=== PATIENT | female | born 1990 | race Caucasian/White ===

== ENCOUNTER 2022-04-07 16:35 | Emergency (ER) | payer MEDICAID, SELFPAY ==
[2022-04-07 16:41] VITALS: BP 152/95; PULSE 119; RESP 14; TEMP 36.8; O2SAT 99
[2022-04-07 17:58] LABS: Add Urine Microscopic? NO; Charge for UA Resulting for Rev
[2022-04-07 18:00] LABS: Bilirubin Urine Neg (Negative); Blood Urine Neg (Negative); Glucose Urine UA Norm (Normal); Ketones Urine Negative (Negative); Leukocyte Esterase Urine Negative (Negative); Nitrate Urine Negative (Negative); Protein Urine Neg (Negative); Urine Appearance Clear (CLEAR); Urine Color Straw (Yellow); Urobilinogen Urine Norm (Negative); pH Urine 5 (5-7)
--- NOTE | 2022-04-07 18:02 | W.ED.FEMALGU ---
HPI - Female Genitourinary General: Chief complaint: Urogenital-Female Stated complaint: urinary pain Time Seen by Provider: 04/07/22 17:41 Source: patient and family Mode of arrival: ambulatory Limitations: no limitations History of Present Illness: Patient is here in the emergency department because she is concerned about some pelvic symptoms and dysuria and burning that she is experienced over the past week. She states she was initially diagnosed as having a possible bladder or lower urinary tract infection given 3 days of antibiotics and seemingly was better however subsequently she was told she did not have a urinary tract infection by her regular clinic. She continues to have intermittent burning and fullness sensation in her lower pelvis. She denies vaginal discharge or vaginal bleeding. Is had no history of STDs and is monogamous. Has had 3 vaginal deliveries the most recent of which was 2 years ago without complications. Was a question of whether she could have PID according to one of her clinic visits although she had no symptoms to suggest that and no history of risk and however and was placed on Flagyl for period of time. MD elicited complaint: dysuria Quality of pain: cramping and dull Consistency: intermittent Associated symptoms: Deny abdominal pain, nausea or vaginal discharge Sexual activity: Yes Patient : No Review of Systems Const: Reports: body aches; Denies: fever(s) or chills GI: Denies: abdominal pain, nausea, vomiting or diarrhea : Denies: flank pain, difficulty voiding, dysuria, hematuria, genital pruritis, vaginal bleeding, vaginal discharge or metrorrhagia Musc: Denies: neck pain or back pain Skin/Breast: Denies: rash Neuro: Denies: numbness in extremities or weakness in extremities Endo: Denies: polyuria or polydipsia Physical Exam Narrative: EXAM NARRATIVE: Patient makes good eye contact she appears to be comfortable and cooperative. Speech is goal-directed and fluent. Const: COMMON NORMALS: no acute distress, average body habitus, patient oriented x3 and alert GENERAL APPEARANCE: cooperative and comfortable HENMT: COMMON NORMALS: normocephalic and Normal nasal mucous membranes and turbinates present HEAD & SCALP: normocephalic NOSE: Normal nasal mucous membranes and turbinates present Eye: COMMON NORMALS: Equal, round and reactive pupils present and conjunctivae normal CONJUNCTIVA: Yes conjunctivae normal PUPIL: Yes Equal, round and reactive pupils present Neck/C-Spine: COMMON NORMALS: full ROM Resp: COMMON NORMALS: normal respiratory effort EFFORT & INSPECTION: Yes able to speak in complete sentences Cardio: COMMON NORMALS: Peripheral pulses 2+ throughout PERIPHERAL PULSES: Peripheral pulses 2+ throughout GI: COMMON NORMALS: Normal to inspection, nondistended, normoactive bowel sounds present, Soft to palpation, non-tender and no masses PALPATION: Yes Soft to palpation : COMMON NORMALS: Yes no CVA tenderness BLADDER/KIDNEY EXAM: Yes no CVA tenderness Back/Pelvis: COMMON NORMALS: no CVA tenderness, thoracic and lumbar spine normal to inspection, no thoracic nor lumbar tenderness and thoraco-lumbar ROM normal Extremity: COMMON NORMALS: normal to inspection and full ROM Neuro: COMMON NORMALS: patient oriented x3 and moves all extremities SENSORIUM/ORIENTATION: Yes alert SPEECH: speech normal GAIT: Yes Normal gait present Course Reevaluation(s): Reevaluation #1: Patient's a urinalysis and hCG are negative. We discussed the fact that I limited information at this point of determining what exactly is causing her discomfort. Certainly does not suggest renal colic, PID etc. at this time but again limited information available. I discussed possible pelvic ultrasound to give us more definitive information and she agreed to proceed. Time: 19:35 Vital Signs: Vital signs: Vital Signs Temperature 98.2 F 04/07/22 16:41 Pulse Rate 119 H 04/07/22 16:41 Respiratory Rate 14 04/07/22 16:41 Blood Pressure 152/95 04/07/22 16:41 Pulse Oximetry 99 04/07/22 16:41 Oxygen Delivery Me thod 04/07/22 16:41 MDM - Female Medical Decision Making This patient presented to emergency department because she had concerns about possible urinary tract infection. She has been having some lower pelvic pressure and what she thought was some dysuria symptoms. She was previously treated with 2 courses of antibiotics. Had some concerns about possible other causes of her symptoms and therefore presented to the emergency department. She had no history of STDs, pelvic surgery other than a tubal ligation, abnormal vaginal bleeding, vaginal discharge etc. She was monogamous and denies any history of dyspareunia exceptor. She had a reassuring clinical examination with no evidence of surgical abdomen etc. Urinalysis was reassuring as well as hCG making urinary tract infection, ectopic very unlikely. She had some also can express some concerns about missing her Pap smear and concerned about possible cervical cancer as she was told she had some abnormal cells before her last delivery. I expect explained to both patient and spouse that we did not have the means to to do Pap smears in the emergency department and this need to be done by her health facilities surveyor and/or primary care doctor. We did obtain a pelvic ultrasound to further delineate any potential pathology which was reassuring and that there was no evidence of free fluid, ovarian cysts etc. She did have a uterine fibroid which may or may not be a contributing factor to her symptoms. At this point she is stable and is capable of continuing her work-up as an outpatient and she voiced understanding of her evaluation has limitations and was appreciative of care. She was advised to use ibuprofen and/or Aleve to help with any cramping or other symptoms that could be attributable to her uterine fibroid. Lab Data I reviewed the patient's lab results. Radiology Impressions Pelvic/Transvag US 04/07/22 19:34 IMPRESSION: 1. No acute findings. 2. 2.5 cm fundal uterine fibroid. Laboratory Results HCG, Qual Negative (Negative) 04/07/22 17:50 Urine Color Straw (Yellow) 04/07/22 17:50 Urine Appearance Clear (CLEAR) 04/07/22 17:50 Urine pH 5 (5-7) 04/07/22 17:50 Ur Specific [place] 1.020 (1.005-1.030) 04/07/22 17:50 Urine Protein Neg (Negative) 04/07/22 17:50 Urine Glucose (UA) Norm (Normal) 04/07/22 17:50 Urine Ketones Negative (Negative) 04/07/22 17:50 Urine Blood Neg (Negative) 04/07/22 17:50 Urine Nitrate Negative (Negative) 04/07/22 17:50 Urine Bilirubin Neg (Negative) 04/07/22 17:50 Urine Urobilinogen Norm mg/dL (Negative) 04/07/22 17:50 Ur Leukocyte Esterase Negative (Negative) 04/07/22 17:50 Discharge Plan Discharge Patient Disposition: Home Clinical Impression: Fibroid, uterine Condition: Stable Discharge Orders: Discharge ED (Routine); Ordered 04/07/22 Ordered By: Tomas Vidal Discharge Diet: Usual diet Discharge Activity: Resume usual activity Patient Instructions: Opioid Safety, Pain Management Activity Restrictions/Additional Instructions: As we discussed you have evidence of uterine fibroid that may or may not be contributing responsible for some of your symptoms. You do not have any evidence of serious conditions such as pelvic mass, ovarian cyst, ectopic etc. If you have some cramping or other discomfort we recommend taking either ibuprofen or Aleve in the usual [id number] doses 1 with meals twice daily for the for 5 days to see if that abates her symptoms. If you have increasing pain, vaginal bleeding, vaginal discharge fevers etc. return to this or the nearest emergency department. We also recommend you get in with your primary care doctor or health facilities surveyor to get your annual Pap smears completed. Coding Level of Care Code ED Web Solutions Architect for Zuleika Loza
[2022-04-07 19:16] LABS: HCG Qualitative Urine. Negative (Negative)
--- NOTE | 2022-04-07 19:34 | USR_ITS ---
PROCEDURE INFORMATION: Exam: US Pelvis, Transvaginal Exam date and time: 04/07/2022 7:45 PM Age: 31 years old Clinical indication: Pelvic pain; Additional info: Pelvic pain-non TECHNIQUE: Imaging protocol: Real-time transvaginal pelvic ultrasound with image documentation. Transvaginal imaging was used for better evaluation of the endometrium, adnexa, and/or cervix. COMPARISON: No relevant prior studies available. FINDINGS: Uterus: 9.6 x 5.0 x 6.6 cm. Endometrial thickness 10 mm. 2.5 cm fundal intramural fibroid. Cervix: Small nabothian cysts. Right ovary/adnexa: 2.7 x 1.8 x 2.2 cm with multiple follicles and normal blood flow. Left ovary/adnexa: 2.5 x 1.6 x 1.7 cm with multiple follicles and normal blood flow. Intraperitoneal space: No free fluid. US/US pelv w/transvag [id number] IMPRESSION: 1. No acute findings. 2. 2.5 cm fundal uterine fibroid.
== END 2022-04-07 21:12 | disposition home or self-care (01) ==
PROVIDERS: Emergency Provider Emergency Medicine
DX: D25.9 Leiomyoma of uterus, unspecified (principal)
CPT/HCPCS: 76830; 76856; 81003; 81025; 99284

== ENCOUNTER 2023-02-20 10:45 | Emergency (ER) | payer MEDICAID, SELFPAY ==
[2023-02-20 10:51] VITALS: BMI 25.8
[2023-02-20 10:53] VITALS: BP 144/98; PULSE 75; RESP 16; TEMP 36.6; O2SAT 100
--- NOTE | 2023-02-20 10:55 | ECG_ITS ---
[facility] Test Date: 2023-02-20 Pat Name: Karmen Musa Department: Room: Gender: Female Polysomnography Technician: : 1990 Requested By: Laureen Mujica Order Number: [id number] Sharon MD: Toño Roblero M.D. Measurements Intervals [place] Rate: 74 P: 49 UT: 167 QRS: 65 QRSD: 92 T: 43 QT: 378 QTc: 422 Interpretive Statements SINUS RHYTHM No previous ECG available for comparison Electronically Signed On 02-20-2023 13:57:01 TRAVEL INSURANCE AGENT by Toño Roblero M.D. [email or web address]
--- NOTE | 2023-02-20 10:55 | XRR_ITS ---
PROCEDURE INFORMATION: Exam: XR Chest Exam date and time: 02/20/2023 11:12 AM Age: 32 years old Clinical indication: Pain; Angina pectoris; Additional info: Cp TECHNIQUE: Imaging protocol: Radiologic exam of the chest. Views: 1 view. COMPARISON: No relevant prior studies available. FINDINGS: Lungs: Unremarkable. No consolidation. Pleural spaces: Unremarkable. No pleural effusion. No pneumothorax. Heart/Mediastinum: Unremarkable. No cardiomegaly. Bones/joints: Unremarkable. XR/XR chest 1V portable [id number] IMPRESSION: No acute findings.
--- NOTE | 2023-02-20 11:13 | ED_ITS ---
HPI - Chest Pain 2 General: Chief Complaint: Chest Pain Stated Complaint: chest pains Time Seen by Provider: 02/20/23 11:02 Source: patient Mode of arrival: ambulatory Limitations: no limitations History of Present Illness: 32-year-old female states that she been having chest pain over the last 2 days. States that sharp pain in her left lateral chest she had some mild dyspnea denies any worsening pain with breathing. 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 States that she has follow-up next week with a oral and maxillofacial surgery in [place] no recent trips she is not on control no recent surgeries no history of blood clots she rates her pain currently 2 out of 10 denies any worsening improving factors Associated symptoms: Deny abdominal pain, dyspnea, fever(s), nausea or vomiting Review of Systems 2 Const: Denies: fever(s), chills, body aches or change in appetite ENMT: Denies: throat pain or dental pain Card: Reports: chest pain Resp: Denies: dyspnea GI: Denies: abdominal pain, nausea, vomiting or diarrhea Musc: Denies: neck pain or back pain Skin/Breast: Denies: rash Neuro: Denies: headache(s) Physical Exam 2 Const: COMMON NORMALS: no acute distress, patient oriented x3 and healthy appearing HENMT: COMMON NORMALS: normocephalic and atraumatic HEAD & SCALP: n ormocephalic and atraumatic Eye: COMMON NORMALS: conjunctivae normal CONJUNCTIVA: Yes conjunctivae normal Neck/C-Spine: COMMON NORMALS: full ROM and supple Chest: COMMONS NORMALS: normal inspection of the chest and normal palpation of entire chest wall Resp: COMMON NORMALS: normal respiratory effort, No retractions, No use of accessory muscles and clear to auscultation bilaterally AUSCULTATION: clear to auscultation bilaterally Cardio: COMMON NORMALS: regular rate, regular rhythm and No murmurs present (Cardio) RATE: regular rate RHYTHM: regular rhythm GI: COMMON NORMALS: Normal to inspection, nondistended, normoactive bowel sounds present, Soft to palpation, non-tender and no masses PALPATION: Yes Soft to palpation Extremity: COMMON NORMALS: normal to inspection and full ROM Neuro: COMMON NORMALS: patient oriented x3, moves all extremities and no focal motor deficits Psych: COMMON NORMALS: mental status grossly normal, Normal thought process present and cooperative THOUGHT PROCESS: Normal thought process present Skin: COMMON NORMALS: no rashes or lesions noted and no wounds GENERAL SKIN EXAM: no rashes or lesions noted Course 2 Vital Signs: Vital signs: Vital Signs Temperature 97.9 F 02/20/23 10:53 Pulse Rate 75 02/20/23 10:53 Respiratory Rate 16 02/20/23 10:53 Blood Pressure 144/98 02/20/23 10:53 Pulse Oximetry 100 02/20/23 10:53 Oxygen Delivery Me thod Room Air 02/20/23 10:53 MDM - Chest Pain Medical Decision Making Patient presents here with chest pains atypical in nature troponin here is negative she has no risk factors for PE she has follow-up with oral and maxillofacial surgery next week she is follow-up as scheduled return if worsening. Medical Records I reviewed the patient's medical records. Lab Data I reviewed the patient's lab results. 02/20/23 11:07 02/20/23 11:07 Radiology Impressions Chest X-Ray 02/20/23 10:55 IMPRESSION: No acute findings. Laboratory Results WBC 4.75 10^3/uL (3.29-11.43) 02/20/23 11:07 RBC 4.74 10^6/uL (3.85-5.65) 02/20/23 11:07 Hgb 12.40 g/dL (11.27-16.99) 02/20/23 11:07 Hct 40.2 % (36-47) 02/20/23 11:07 MCV 84.8 fl (85-98) L 02/20/23 11:07 MCH 26.2 pg (27-33) L 02/20/23 11:07 MCHC 30.8 g/dL (30-55) 02/20/23 11:07 RDW 16.3 % (12.1-15.1) H 02/20/23 11:07 Plt Count 277 10^3/cmm (157-399) 02/20/23 11:07 MPV 11.2 fL (7.4-10.4) H 02/20/23 11:07 Neut % (Auto) 67.0 % 02/20/23 11:07 Lymph % (Auto) 22.9 % 02/20/23 11:07 [place] % (Auto) 7.6 % 02/20/23 11:07 Eos % (Auto) 1.3 % 02/20/23 11:07 Baso % (Auto) 0.8 % 02/20/23 11:07 Neut # (Auto) 3.18 10^3/uL (1.8-7.7) 02/20/23 11:07 Lymph # (Auto) 1.1 10^3/uL (0.8-4.8) 02/20/23 11:07 [place] # (Auto) 0.4 10^3/uL (0.2-0.9) 02/20/23 11:07 Eos # (Auto) 0.1 10^3/uL (0.0-0.8) 02/20/23 11:07 Baso # (Auto) 0.0 10^3/uL (0.0-0.1) 02/20/23 11:07 Nucleated RBC % (auto) 0 % 02/20/23 11:07 Nucleated RBCs # 0.0 /100WBC 02/20/23 11:07 Sodium 139 mmol/L (136-145) 02/20/23 11:07 Potassium 4.2 mmol/L (3.5-5.1) 02/20/23 11:07 Chloride 106 mmol/L (98-107) 02/20/23 11:07 Carbon Dioxide 24 mmol/L (22-29) 02/20/23 11:07 Anion Gap 13.2 (5-19) 02/20/23 11:07 BUN 5 mg/dL (6-20) L 02/20/23 11:07 Creatinine 0.5 mg/dL (0.5-0.9) 02/20/23 11:07 GFR Calculation 141.2 mL/min (90-130) H 02/20/23 11:07 Glucose 100 mg/dL (65-115) 02/20/23 11:07 Calculated Osmolality 285 mOsm/kg (285-295) 02/20/23 11:07 Calcium 9.7 mg/dL (8.5-10.5) 02/20/23 11:07 Total Bilirubin 0.2 mg/dL (0.15-1.2) 02/20/23 11:07 AST 13 U/L (0-32) 02/20/23 11:07 ALT 7 U/L (0-33) 02/20/23 11:07 Alkaline Phosphatase 105 U/L (35-105) 02/20/23 11:07 Troponin T Baseline < 6 ng/L (0-10) 02/20/23 11:07 Total Protein 7.3 g/dL (6.6-8.7) 02/20/23 11:07 Albumin 4.8 g/dL (3.5-5.2) 02/20/23 11:07 Globulin 2.5 g/dL (1.3-4.6) 02/20/23 11:07 HCG, Qual Negative (Negative) 02/20/23 11:07 All radiology interpretation(s) finalized by discharge EKG Data EKG 1: I personally reviewed and interpreted this EKG as follows: EKG interpretation date: 02/20/23 EKG interpretation time: 10:53 Interpretation: nsr hr [address] or t wave abnormalities qrs 92 qtc 406 Discharge Plan Discharge Patient Disposition: Home Clinical Impression: Chest pain Qualifiers: Chest pain type: unspecified Qualified Code(s): R07.9 - Chest pain, unspecified Condition: Stable Prescriptions: No Action propranolol 20 mg tablet 20 mg PO TID PRN (Reason: Headache) Discharge Orders: Discharge ED (Routine); Ordered 02/20/23 Ordered By: Laureen Mujica Referrals: Estrella Eagle NP [Primary Care Provider] - Discharge Diet: Advance as tolerated Discharge Activity: Resume usual activity Patient Instructions: Chest Pain (ED) Coding Level of Care Code ED Manager Managing for Chg Dago
[2023-02-20 11:19] LABS: Basophils % 0.8 %; Eosinophils # 0.1 10^3/uL (0.0-0.8); Eosinophils % 1.3 %; Hematocrit 40.2 % (36-47); Lymphocytes # 1.1 10^3/uL (0.8-4.8); Lymphocytes % 22.9 %; Mean Corpuscular HGB Conc 30.8 g/dL (30-55); Mean Corpuscular Hemoglobin 26.2 pg (27-33); Mean Corpuscular Volume 84.8 fl (85-98); Mean Platelet Volume 11.2 fL (7.4-10.4); Monocytes # 0.4 10^3/uL (0.2-0.9); Monocytes % 7.6 %; Neutrophils # 3.18 10^3/uL (1.8-7.7); Nucleated Red Blood Cells % 0 %; Platelet Count 277 10^3/cmm (157-399); Red Blood Count 4.74 10^6/uL (3.85-5.65); Red Cell Distribution Width 16.3 % (12.1-15.1); White Blood Count 4.75 10^3/uL (3.29-11.43)
[2023-02-20 11:34] LABS: HCG, Serum Qual Negative (Negative)
[2023-02-20 11:38] LABS: Alanine Aminotransferase 7 U/L (0-33); Albumin Level 4.8 g/dL (3.5-5.2); Alkaline Phosphatase 105 U/L (35-105); Anion Gap 13.2 (5-19); Aspartate Amino Transferase 13 U/L (0-32); Blood Urea Nitrogen 5 mg/dL (6-20); Calcium 9.7 mg/dL (8.5-10.5); Carbon Dioxide 24 mmol/L (22-29); Chloride 106 mmol/L (98-107); Globulin 2.5 g/dL (1.3-4.6); Glomerular Filtration Rate 141.2 mL/min (90-130); Glucose 100 mg/dL (65-115); Osmolality Calculated 285 mOsm/kg (285-295); Potassium 4.2 mmol/L (3.5-5.1); Sodium 139 mmol/L (136-145); Total Bilirubin 0.2 mg/dL (0.15-1.2); Total Protein 7.3 g/dL (6.6-8.7)
[2023-02-20 11:40] LABS: Troponin(5th) Baseline < 6 ng/L (0-10)
[2023-02-20 11:57] VITALS: BP 144/98; PULSE 78; RESP 15; O2SAT 100
== END 2023-02-20 11:58 | disposition home or self-care (01) ==
PROVIDERS: Emergency Provider Emergency Medicine; PCP Nurse Practitioner Family
DX: R07.9 Chest pain, unspecified (principal)
CPT/HCPCS: 36415; 71045; 80053; 84484; 84703; 85025; 93005; 99285

== ENCOUNTER 2023-08-14 22:08 | Emergency (ER) | payer MEDICAID, SELFPAY ==
[2023-08-14 22:10] VITALS: BP 151/99; PULSE 85; RESP 14; TEMP 36.4; O2SAT 97
--- NOTE | 2023-08-14 22:52 | ED_ITS ---
HPI - Abdominal Pain 2 General: Chief Complaint: Abdominal Pain Stated Complaint: Lower abd pain Time Seen by Provider: 08/14/23 22:09 Source: patient Mode of arrival: ambulatory Limitations: no limitations History of Present Illness: Patient is a 33-year-old female presents to ED today with complaint of epigastric burning beginning approximately 2 to 3 days ago. Patient states she was seen at an emergency department at [place], [place] earlier today where she had benign blood work and an essentially normal CT scan. She states they told her she could possibly have a gastric ulcer. She was placed on Protonix. Patient states following discharge she started vomiting at home and has continued to vomit and has felt very nauseous thus prompting her emergency department today. She does tell me her significant other has also had a stomach ache but has not had any vomiting. She has not had any fevers. She has not had any hematemesis or changes in her bowel movements. No urinary symptoms. Patient denies chance of . MD elicited complaint: abdominal pain Pertinent past history: none Onset (ago): day(s) Pain Consistency: intermittent Location: Epigastric Severity: moderate Quality: burning Radiation: none Migration to: no migration Exacerbating factors: nothing Relieving factors: nothing Associated Symptoms: Reports nausea and vomiting; Denies change in bowel habits, chills, dysuria, fever(s), hematochezia, hematuria, hematemesis and melena Related Data: Patient : No Review of Systems 2 Const: Denies: fever(s), chills, body aches, fatigue or malaise Card: Denies: chest pain Resp: Denies: dyspnea GI: Reports: abdominal pain, nausea and vomiting; Denies: hematemesis, change in bowel habits, hematochezia or melena : Denies: flank pain, dysuria or hematuria Musc: Denies: neck pain, back pain, extremity pain or joint pain Skin/Breast: Denies: rash Neuro: Denies: headache(s), numbness in extremities, weakness in extremities, sensory changes or dizziness Physical Exam 2 Const: COMMON NORMALS: average body habitus, patient oriented x3, no limitations, healthy appearing, alert and well nourished GENERAL APPEARANCE: cooperative and in distress (actively vomiting into trash can-non bilious/non bloody) ORIENTATION/CONSCIOUSNESS: Yes awake, Yes oriented to person, Yes oriented to place and Yes oriented to time Eye: COMMON NORMALS: no scleral icterus Neck/C-Spine: GENERAL: Yes other (no subcutaneous crepitus) Chest: COMMONS NORMALS: normal inspection of the chest and normal palpation of entire chest wall Resp: COMMON NORMALS: normal respiratory effort and clear to auscultation bilaterally AUSCULTATION: clear to auscultation bilaterally Cardio: COMMON NORMALS: regular rate and regular rhythm RATE: regular rate RHYTHM: regular rhythm GI: COMMON NORMALS: Normal to inspection, nondistended, normoactive bowel sounds present, Soft to palpation, No hepatosplenomegaly present and no masses INSPECTION: Yes normal to inspection AUSCULTATION: Yes normoactive bowel sounds PALPATION: Yes Soft to palpation, Yes Tenderness to palpation present (GI) (epigastric-mild), No Guarding due to palpation present (GI), No Rigid due to palpation and Yes No hepatosplenomegaly present : COMMON NORMALS: Yes no CVA tenderness BLADDER/KIDNEY EXAM: Yes no CVA tenderness Back/Pelvis: COMMON NORMALS: no CVA tenderness and thoracic and lumbar spine normal to inspection Extremity: GENERAL: Yes normal exam except as noted Neuro: EMANUEL COMA SCALE: document GCS findings Emanuel coma scale eye opening: Spontaneous Emanuel coma scale verbal response: Orientated Mascotte coma scale motor response: Obey commands Emanuel coma scale total score: 15 COMMON NORMALS: patient oriented x3, moves all extremities, no focal motor deficits and no sensory deficits noted SENSORIUM/ORIENTATION: Yes alert, Yes oriented to person, Yes oriented to place and Yes oriented to time Skin: COMMON NORMALS: no rashes or lesions noted GENERAL SKIN EXAM: no rashes or lesions noted Course 2 Vital Signs: Vital signs: Vital Signs Temperature 97.6 F 08/14/23 22:10 Pulse Rate 80 08/14/23 23:30 Respiratory Rate 16 08/14/23 23:30 Blood Pressure 127/76 08/14/23 23:30 Pulse Oximetry 99 08/14/23 23:30 Oxygen Delivery Me thod Room Air 08/14/23 22:10 MDM - Abdominal Pain Medical Decision Making Patient looks and feels significantly better after GI cocktail and IV Reglan. She states she is ready to go home. Labs overall are unremarkable. She is mildly hypokalemic with a potassium of 3.3. We had requested records from [place] at the beginning of her visit and after 2 hours we have yet to receive these. Ultimately her abdomen is nonsurgical during my exam. She feels much better at time of re-examination. She will be allowed discharge with return precautions. Differential Diagnosis Likely abdominal pain, constipation, gastroenteritis, pancreatitis and small bowel obstruction Medical Records I reviewed the patient's medical records. Lab Data I reviewed the patient's lab results. 08/14/23 23:20 08/14/23 23:20 Labs/Radiology: Laboratory Results WBC 8.13 10^3/uL (3.29-11.43) 08/14/23 23:20 RBC 4.40 10^6/uL (3.85-5.65) 08/14/23 23:20 Hgb 11.40 g/dL (11.27-16.99) 08/14/23 23:20 Hct 36.2 % (36-47) 08/14/23 23:20 MCV 82.3 fl (85-98) L 08/14/23 23:20 MCH 25.9 pg (27-33) L 08/14/23 23:20 MCHC 31.5 g/dL (30-55) 08/14/23 23:20 RDW 13.2 % (12.1-15.1) 08/14/23 23:20 Plt Count 200 10^3/cmm (157-399) 08/14/23 23:20 MPV 11.6 fL (7.4-10.4) H 08/14/23 23:20 Neut % (Auto) 79.3 % 08/14/23 23:20 Lymph % (Auto) 12.7 % 08/14/23 23:20 Yancey % (Auto) 6.8 % 08/14/23 23:20 Eos % (Auto) 0.6 % 08/14/23 23:20 Baso % (Auto) 0.2 % 08/14/23 23:20 Neut # (Auto) 6.45 10^3/uL (1.8-7.7) 08/14/23 23:20 Lymph # (Auto) 1.0 10^3/uL (0.8-4.8) 08/14/23 23:20 Yancey # (Auto) 0.6 10^3/uL (0.2-0.9) 08/14/23 23:20 Eos # (Auto) 0.1 10^3/uL (0.0-0.8) 08/14/23 23:20 Baso # (Auto) 0.0 10^3/uL (0.0-0.1) 08/14/23 23:20 Nucleated RBC % (auto) 0 % 08/14/23 23:20 Nucleated RBCs # 0.0 /100WBC 08/14/23 23:20 Sodium 138 mmol/L (136-145) 08/14/23 23:20 Potassium 3.3 mmol/L (3.5-5.1) L 08/14/23 23:20 Chloride 103 mmol/L (98-107) 08/14/23 23:20 Carbon Dioxide 22 mmol/L (22-29) 08/14/23 23:20 Anion Gap 16.3 (5-19) 08/14/23 23:20 BUN 4 mg/dL (6-20) L 08/14/23 23:20 Creatinine 0.5 mg/dL (0.5-0.9) 08/14/23 23:20 GFR Calculation 140.4 mL/min (90-130) H 08/14/23 23:20 Glucose 135 mg/dL (65-115) H 08/14/23 23:20 Calculated Osmolality 285 mOsm/kg (285-295) 08/14/23 23:20 Calcium 8.6 mg/dL (8.5-10.5) 08/14/23 23:20 Total Bilirubin 0.2 mg/dL (0.15-1.2) 08/14/23 23:20 AST 16 U/L (0-32) 08/14/23 23:20 ALT 10 U/L (0-33) 08/14/23 23:20 Alkaline Phosphatase 109 U/L (35-105) H 08/14/23 23:20 Total Protein 7.4 g/dL (6.6-8.7) 08/14/23 23:20 Albumin 4.4 g/dL (3.5-5.2) 08/14/23 23:20 Globulin 3.0 g/dL (1.3-4.6) 08/14/23 23:20 Lipase 14 U/L (13-60) 08/14/23 23:20 HCG, Qual Negative (Negative) 08/14/23 23:20 No radiology studies performed this visit Discharge Plan Discharge Patient Disposition: Home Clinical Impression: Acute epigastric pain Vomiting Qualifiers: Vomiting type: unspecified Nausea presence: with nausea Qualified Code(s): R 11.2 - Nausea with vomiting, unspecified Condition: Stable Prescriptions: New metoclopramide HCl 10 mg tablet 10 mg PO Q6H PRN (Reason: nausea and vomiting) Qty: 14 0RF No Action propranolol 20 mg tablet 20 mg PO TID PRN (Reason: Headache) Discharge Orders: Discharge ED (Routine); Ordered 08/15/23 Ordered By: Gloria Grimaldo Referrals: Estrella Eagle NP [Primary Care Provider] - Patient Instructions: Abdominal Pain (ED) Activity Restrictions/Additional Instructions: As we discussed please follow-up with your primary care provider later this week if symptoms persist. You may use the nausea medications as needed. As we discussed, I would recommend a bland liquid diet and advancing as tolerated. He may return to the emergency department for severe abdominal pain, repetitive episodes of vomiting especially if it appears bilious or bloody, fevers, generally feeling worse or unwell, or any other concerns you may have. Coding Level of Care Code ED [employer] Work[employer] Foreman for Zuleika Loza
[2023-08-14] MEDS: metoclopramide 5 mg/mL SDV 2 mL 10 MG IVP (23:15)
[2023-08-14] MEDS: lidocaine 2% viscous 15 ML, aluminum-mag hydrox-simethicon 30 ML, sucralfate oral liq 1 GM PO (23:16)
[2023-08-14 23:25] LABS: Basophils % 0.2 %; Eosinophils # 0.1 10^3/uL (0.0-0.8); Eosinophils % 0.6 %; Hematocrit 36.2 % (36-47); Lymphocytes % 12.7 %; Mean Corpuscular HGB Conc 31.5 g/dL (30-55); Mean Corpuscular Hemoglobin 25.9 pg (27-33); Mean Corpuscular Volume 82.3 fl (85-98); Mean Platelet Volume 11.6 fL (7.4-10.4); Monocytes # 0.6 10^3/uL (0.2-0.9); Monocytes % 6.8 %; Neutrophils # 6.45 10^3/uL (1.8-7.7); Neutrophils % 79.3 %; Nucleated Red Blood Cells % 0 %; Platelet Count 200 10^3/cmm (157-399); Red Cell Distribution Width 13.2 % (12.1-15.1); White Blood Count 8.13 10^3/uL (3.29-11.43)
[2023-08-14 23:30] VITALS: BP 127/76; PULSE 80; RESP 16; O2SAT 99
[2023-08-14 23:42] LABS: Alanine Aminotransferase 10 U/L (0-33); Albumin Level 4.4 g/dL (3.5-5.2); Alkaline Phosphatase 109 U/L (35-105); Aspartate Amino Transferase 16 U/L (0-32); Blood Urea Nitrogen 4 mg/dL (6-20); Calcium 8.6 mg/dL (8.5-10.5); Carbon Dioxide 22 mmol/L (22-29); Chloride 103 mmol/L (98-107); Creatinine Clr Calc Pharmacy 168.0984; Glomerular Filtration Rate 140.4 mL/min (90-130); Glucose 135 mg/dL (65-115); Lipase 14 U/L (13-60); Osmolality Calculated 285 mOsm/kg (285-295); Sodium 138 mmol/L (136-145); Total Bilirubin 0.2 mg/dL (0.15-1.2); Total Protein 7.4 g/dL (6.6-8.7)
[2023-08-14 23:59] LABS: Anion Gap 16.3 (5-19); Potassium 3.3 mmol/L (3.5-5.1)
[2023-08-15 00:10] LABS: HCG, Serum Qual Negative (Negative)
== END 2023-08-15 00:20 | disposition home or self-care (01) ==
PROVIDERS: Emergency Provider Physician Assistant; PCP Nurse Practitioner Family
DX: R10.13 Epigastric pain (principal); R11.2 Nausea with vomiting, unspecified
CPT/HCPCS: 80053; 83690; 84703; 85025; 96374; 99284; J2765

== ENCOUNTER 2024-05-05 19:56 | Emergency (ER) | payer MEDICAID, SELFPAY ==
[2024-05-05] VITALS (7 sets, daily range): BP systolic 129–148; BP diastolic 71–92; PULSE 120–128; RESP 18–24; TEMP 36.7; O2SAT 95–97; BMI 27.3
--- NOTE | 2024-05-05 20:27 | XRR_ITS ---
PROCEDURE INFORMATION: Exam: XR Chest Exam date and time: 05/05/2024 8:38 PM Age: 33 years old Clinical indication: Shortness of breath TECHNIQUE: Imaging protocol: Radiologic exam of the chest. Views: 1 view. COMPARISON: CR XR chest 1V portable [id number] 02/20/2023 11:12 AM FINDINGS: Lungs: No focal consolidation or other acute appearing pulmonary opacity. Pleural spaces: No pleural effusion or pneumothorax noted. Heart/Mediastinum: There is no cardiomegaly. Bones/joints: No acute osseous abnormality. Intraperitoneal space: There is no free intraperitoneal gas. XR/XR chest 1V portable [id number] IMPRESSION: No acute findings.
--- NOTE | 2024-05-05 20:28 | W.ED.ASTHMA ---
HPI - Asthma General: Chief Complaint: Asthma Stated Complaint: Dizzy, Asma attacks Time Seen by Provider: 05/05/24 20:21 History of Present Illness: 33-year-old female with a history of asthma who presents emergency room shortness of breath and asthma symptoms. She says she has been having quite a bit of difficulty with this recently. She has had several steroid shots. She has been on a Z-Juan. States she thinks she had the flu and may be a different illness. She says she been having to take her updrafts very frequently. Today it was much worse. She does have quite a bit of wheeze on exam. She says she does not think she is on any kind of controller medication for her asthma. No chest pain. No abdominal pain. No vomiting. No known fevers. Related Data Home Medications ?Medication ?Instructions ?Recorded ?Confirmed propranolol 20 mg tablet 20 mg PO TID PRN Headache 02/20/23 02/20/23 Previous Rx's ?Medication ?Instructions ?Recorded metoclopramide HCl 10 mg tablet 10 mg PO Q6H PRN nausea and 08/15/23 vomiting #14 tabs albuterol sulfate 90 mcg/actuation 2 inh inhalation Q4H PRN shortness 05/05/24 aerosol inhaler of breath or wheezing #6.7 grams doxycycline monohydrate 100 mg 100 mg PO BID 10 days #20 caps 05/05/24 capsule prednisone 20 mg tablet 60 mg (3 x 20 mg) PO DAILY #20 tabs 05/05/24 Allergies Allergy/AdvReac Type Severity Reaction Status Date / Time ciprofloxacin Allergy ALGY-Hives Verified 05/05/24 20:17 clindamycin Allergy ALGY-Hives Verified 05/05/24 20:17 Review of Systems Narrative: Constitutional symptoms: Negative except as documented in HPI. Skin symptoms: Negative except as documented in HPI. Eye symptoms: Negative except as documented in HPI. ENMT symptoms: Negative except as documented in HPI. Respiratory symptoms: Negative except as documented in HPI. Cardiovascular symptoms: Negative except as documented in HPI. Gastrointestinal symptoms: Negative except as documented in HPI. Genitourinary symptoms: Negative except as documented in HPI. Musculoskeletal symptoms: Negative except as documented in HPI. Neurologic symptoms: Negative except as documented in HPI. Psychiatric symptoms: Negative except as documented in HPI. Endocrine symptoms: Negative except as documented in HPI. [facility] ED Female Reproductive History: Date of last menstrual period: 04/14/24 Physical Exam Narrative: EXAM NARRATIVE: General: Alert, no acute distress. Skin: Warm, dry. Head: Normocephalic, atraumatic. Neck: Supple, trachea midline. Eye: Extraocular movements are intact. Ears, nose, mouth and throat: Oral mucosa moist. Cardiovascular: Regular, tachycardic, Normal peripheral perfusion. Respiratory: coarse, scattered wheeze, mild increased wob. tachypnea, breath sounds are equal, Symmetrical chest wall expansion. Gastrointestinal: Soft, Nontender, Non distended, Normal bowel sounds. Musculoskeletal: Normal ROM, no deformity. Neurological: Alert and oriented, No focal neurological deficit observed. Psychiatric: Cooperative, appropriate mood & affect. Course Vital Signs: Vital signs: Vital Signs Temperature 98.0 F 05/05/24 20:07 Pulse Rate 121 H 05/05/24 22:30 Respiratory Rate 20 H 05/05/24 21:01 Blood Pressure 129/73 05/05/24 22:30 Pulse Oximetry 95 05/05/24 22:30 Oxygen Delivery Me thod Room Air 05/05/24 22:30 MDM - Asthma Medical Decision Making Differential diagnosis for patient with shortness of breath includes but is not limited to and based on the above HPI, review of systems and physical exam: Pneumonia. Bronchitis. Asthma or COPD with acute exacerbation. Acute coronary syndrome / CA. Pulmonary embolism. Anxiety. Congestive heart failure. Viral infections including influenza and Covid-19. Atrial fibrillation. Anxiety. Pleural effusion. Pneumothorax. Orders placed to evaluate differential diagnosis based on the above differential, HPI and physical exam Lab Review: Laboratory results were reviewed and interpreted by myself the emergency room physician. Extended respiratory panel is negative I reviewed the patient's medical record. Reexamination: I reexamined the patient multiple times. After first of treatment she still had quite a bit of wheeze. She was not tachypneic. I gave her an additional breathing treatment which improved things some. She says she feels a little bit better. We discussed at length that she needs to follow with her primary care provider and likely needs to be on some sort of controller medication as she has been having multiple exacerbations recently. Assessment and plan: Asthma exacerbation ?Spacer training for her MDI. She was not using this appropriately. She is been given multiple updrafts and IV Solu-Medrol here. I am going to place her on some doxycycline for few days in case she is developing a bronchitis. - Discharged home - Discussed plan with patient. Answered any questions. - Evaluation and treatment of this problem were appropriate in the emergency setting. Lab Data Radiology Impressions Chest X-Ray 05/05/24 20:27 IMPRESSION: No acute findings. Laboratory Results Adenovirus (PCR) Not detected (NOT DETECT) 05/05/24 20:40 C. pneumoniae DNA (PCR) Not detected (NOT DETECT) 05/05/24 20:40 Coronavirus 229E (PCR) Not detected (NOT DETECT) 05/05/24 20:40 Human Metapneumovir PCR Not detected (NOT DETECT) 05/05/24 20:40 Influenza A (H1) PCR Not detected (NOT DETECT) 05/05/24 20:40 Influ A (H1/09) PCR Not detected (NOT DETECT) 05/05/24 20:40 Influenza A (H3) PCR Not detected (NOT DETECT) 05/05/24 20:40 Influenza Type A (PCR) Not detected (NOT DETECT) 05/05/24 20:40 Influenza Type B (PCR) Not detected (NOT DETECT) 03 20:40 M. pneumoniae (PCR) Not detected (NOT DETECT) 05/05/24 20:40 Parainfluenza 1 (PCR) Not detected (NOT DETECT) 03 20:40 Parainfluenza 2 (PCR) Not detected (NOT DETECT) 03 20:40 Parainfluenza 3 (PCR) Not detected (NOT DETECT) 05/05/24 20:40 Parainfluenza 4 (PCR) Not detected (NOT DETECT) 05/05/24 20:40 RSV Type A (PCR) Not detected (NOT DETECT) 05/05/24 20:40 RSV Type B (PCR) Not detected (NOT DETECT) 05/05/24 20:40 Entero/Rhino (PCR) Not detected (NOT DETECT) 05/05/24 20:40 SARS-CoV-2 (PCR) Not detected (NOT DETECT) 05/05/24 20:40 All radiology interpretation(s) finalized by discharge Discharge Plan Discharge Patient Disposition: Home Clinical Impression: Asthma with acute exacerbation Condition: Stable Prescriptions: New prednisone 20 mg tablet 60 mg PO DAILY Qty: 20 0RF Rx Instructions: 3 tabs (60 mg) x 3 days. 2 tabs (40 mg) x 3 days. 1 tab (20 mg) x 3 days. 1/2 tab (10 mg) x 4 days doxycycline monohydrate 100 mg capsule 100 mg PO BID 10 Days Qty: 20 0RF albuterol sulfate 90 mcg/actuation HFA aerosol inhaler 2 inh inhalation Q4H PRN (Reason: shortness of breath or wheezing) Qty: 6.7 0RF Rx Instructions: Please provide patient with a spacer No Action propranolol 20 mg tablet 20 mg PO TID PRN (Reason: Headache) metoclopramide HCl 10 mg tablet 10 mg PO Q6H PRN (Reason: nausea and vomiting) Qty: 14 0RF Discharge Orders: Discharge ED (Routine); Ordered 05/05/24 Ordered By: Brigitte Andres Referrals: Estrella Eagle NP [Primary Care Provider] - Discharge Diet: As Directed Discharge Activity: Increase activity as tolerated Patient Instructions: How to Use a Metered-Dose Inhaler and a Spacer (ED), Opioid Safety, Pain Management Activity Restrictions/Additional Instructions: Thank you for choosing [facility] for your healthcare needs today. Please realize this is an emergency room and that we are providing you with a medical screening exam and this may not be complete and all inclusive of all the testing and or work up that you may need to determine your ailment or severity of your illness. You have been screened and evaluated and felt safe for discharge. Health conditions do change or evolve sometimes and as such it is important that you follow up with your Primary Doctor to be re checked, 3-5 days is a general good time frame for follow up. You are always welcome to return to the ED for re assessment if your symptoms are worsening or you have new concerns Print Language: Tanzanian Coding Level of Care Code ED Quality Assurance Practice Manager for Zuleika Loza
[2024-05-05] MEDS: methylPREDNISolone sod succ 125 mg/2 mL INJ IVP (20:52)
[2024-05-05] MEDS: ipratropium-albuterol 3 mL Neb INHALATION (20:54)
[2024-05-05] MEDS: albuterol 8 gm MDI 2 PUFF INHALATION (21:04)
[2024-05-05 22:55] LABS: Adenovirus Not Detected (NOT DETECT); Chlamydia Pneumoniae Not Detected (NOT DETECT); Coronavirus 229E,HKU1,NL63,OC4 Not Detected (NOT DETECT); Human Metapneumovirus Not Detected (NOT DETECT); Human Rhinovirus/Enterovirus Not Detected (NOT DETECT); Influenza A Not Detected (NOT DETECT); Influenza A H1 Not Detected (NOT DETECT); Influenza A H1-2009 Not Detected (NOT DETECT); Influenza A H3 Not Detected (NOT DETECT); Influenza B Not Detected (NOT DETECT); Mycoplasma Pneumoniae Not Detected (NOT DETECT); Parainfluenza Virus Type 1 Not Detected (NOT DETECT); Parainfluenza Virus Type 2 Not Detected (NOT DETECT); Parainfluenza Virus Type 3 Not Detected (NOT DETECT); Parainfluenza Virus Type 4 Not Detected (NOT DETECT); Respiratory Syncytial Virus A Not Detected (NOT DETECT); Respiratory Syncytial Virus B Not Detected (NOT DETECT); SARS-COV-2 Not Detected (NOT DETECT)
== END 2024-05-05 23:46 | disposition home or self-care (01) ==
PROVIDERS: Emergency Provider Emergency Medicine; PCP Nurse Practitioner Family
DX: J45.901 Unspecified asthma with (acute) exacerbation (principal); Z11.52 Encounter for screening for COVID-19
CPT/HCPCS: 71045; 87486; 87581; 87633; 94640; 96374; 99284; J2919; J3535